=== PATIENT | male | born 1945 | race Caucasian/White ===

== ENCOUNTER 2016-11-21 10:48 | Inpatient (IN) ==
[2016-11-21] MEDS ORDERED: HYDROmorphone 2 MG/1 ML VIAL IV STA (11:06)
[2016-11-21] MEDS ORDERED: ONDANSETRON 4 MG/2 ML VIAL IV STA (11:06)
[2016-11-21] MEDS ORDERED: SODIUM CHLORIDE 0.9% 1,000 ML IV STA (11:06)
[2016-11-21] MEDS ORDERED: ONDANSETRON 4 MG/2 ML VIAL ONE ×2 (11:23→14:03)
[2016-11-21] MEDS ORDERED: HYDROmorphone 2 MG/1 ML VIAL ONE (11:24)
--- NOTE | 2016-11-21 11:25 | Emergency Department Note ---
Bean Steele Brooke, am scribing for, and in the presence of, Kristofer García MD 11:11 . Raquel Steele James D, MD, personally performed the services described in this documentation, ascribed by Alesia Del Angel in my presence, and it is both accurate and complete . Arrival - Arrival Chief Complaint: Abdominal / Flank Pain Stated Complaint: abd pain,nausea,weakness/sent by [facility] ED Nursing Triage Note: c/o having abdomen pain that started at 0400 am, + nausea., states [facility] and was told to come here because he felt weak and needed to lay down., denies having increase temp., states the pain is worse in the pelvic area., denies having pain when urinates., last BM today (normal) Mode of Arrival: Wheelchair Limitations: No Limitations Source: Patient, RN Notes Reviewed Time Seen by Provider: 11/21/16 11:00 - History of Present Illness HPI Narrative: Patient is a 71 year old male who presents to the ED with c/o RLQ abdominal pain that started around 0500 this morning. Patient says the pain woke him from his sleep and it felt like he had to go to the bathroom. With time, he says the pain has worsened. The pain is also worsened with movement. He describes the pain as "like a knot in there." He has never experienced this pain in the past. He says he ate okay last night. He says he does not have any hernias that he is aware of. He denies having any dysuria, chills, fever, constipation, blood in stool, or vomiting but says he did get nauseated earlier. His last bowel movement was at 0700 this morning and he says it was normal. Patient no longer has his gallbadder but does have his appendix. Patient has PMHx of HTN and GA. Patient is no longer a smoker and does not drink alcohol. His Primary Care Provider is Dr. Blandon. Onset (ago): hour(s) (6) Allergies/Adverse Reactions: Allergies Allergy/AdvReac Type Severity Reaction Status Date / Time No Known Allergies Allergy Verified 11/21/16 10:54 Home Medications: Home Medications Medication Instructions Recorded Confirmed Type Aspirin EC Tab 325 mg PO DAILY 11/21/16 11/21/16 History Carvedilol [Coreg] 25 mg PO BID 11/21/16 11/21/16 History Cholecalciferol (Vitamin D3) 2,000 unit PO DAILY 11/21/16 11/21/16 History [Vitamin D3] Cyanocobalamin/Folic AC/Vit B6 1 each PO DAILY 11/21/16 11/21/16 History [Folbic Tablet] Levothyroxine Tab [Synthroid Tab] 137 mcg PO DAILY 11/21/16 11/21/16 History Losartan [Cozaar] 50 mg PO DAILY 11/21/16 11/21/16 History Magnesium Chloride [Slow Mag] 128 mg PO DAILY 11/21/16 11/21/16 History Pantoprazole Tab [Protonix Tab] 40 mg PO DAILY 11/21/16 11/21/16 History Rosuvastatin [Crestor] 10 mg PO DAILY 11/21/16 11/21/16 History Sertraline [Zoloft] 50 mg PO DAILY 11/21/16 11/21/16 History hydroCHLOROthiazide 12.5 mg PO DAILY 11/21/16 11/21/16 History [Hydrochlorothiazide] Review of System - Review of System 12 point system: reviewed and no additional remarkable complaints except as stated - Review of System Constitutional: Absent: chills, fever Respiratory: Absent: respiratory distress Gastrointestinal: Present: abdominal pain (RLQ), nausea. Absent: vomiting, constipation, hematochezia Genitourinary male: Absent: dysuria Skin: Absent: rash Medical,Surgical,& Family Hx - Medical History Cardio: History of: Hypertension, GA, Cardiovascular Problems - Surgical History Cardiac Surgeries: Sugical HX of: Cardiac Surgery - Social History Smoking Status: Never smoker Frequency of Alcohol Use: None Type of Drug Use: None Exam Vital Signs: Vital Signs Temperature 98.0 F 11/21/16 10:49 Pulse Rate 74 11/21/16 10:49 Respiratory Rate 18 11/21/16 10:49 Blood Pressure 86/44 11/21/16 10:49 O2 Sat by Pulse Oximetry 96 11/21/16 10:49 GENERAL: This is a well-nourished well-developed white male in no apparent distress. VITAL SIGNS: Reviewed HEENT: Head is atraumatic and normocephalic. Pupils are equal round react to light. Extraocular movements are intact. Oropharynx is benign with moist mucous membranes. NECK: Neck is soft and supple without tenderness. There are no masses. There is no lymphadenopathy. LUNGS: Lungs are clear to auscultation. Chest rises symmetrically. There is no chest wall tenderness. CV: Heart is regular rate and rhythm without murmurs rubs or gallops. ABDOMEN: Abdomen is tender to palpation the left lower quadrant with some guarding, there is no rebound. The patient does have some left CVA tenderness. There are no abdominal abnormal masses palpated. There is no organomegaly. Bowel sounds are present and active. SKIN: Skin is warm and dry. No rash. EXTREMITIES: Patient has full range of motion without tenderness. There is no pedal edema. NEUROLOGIC: Awake alert and oriented 4. Cranial nerves II through XII are grossly intact. Motor is 5 over 5 in all extremities bilaterally. Course - Consultations Consultation #1: Discussed with Dr. Antonio WILLSON. Patient will be seen in the emergency department by him. Time: 11:40 Results - Labs CBC & BMP: 11/21/16 11:41 11/21/16 11:02 Lab Results: I have reviewed the patients labs - Diagnostic Findings Procedure: Abdominal x-ray: image reviewed by me (Nonspecific gas pattern with pneumoperitoneum.), Chest x-ray: image reviewed by me (No infiltrates, old median sternotomy, bilateral pneumoperitoneum.), CT Abdomen and Pelvis: image reviewed by me (Generalized colonic diverticulosis with diverticulitis of the rectosigmoid colon and pneumoperitoneum.) Disposition Clinical Impression: Intractable left lower quadrant abdominal pain, Pneumoperitoneum Case discussed with: patient, patient's family Disposition: Still a Patient Condition: Stable
[2016-11-21] MEDS ORDERED: AMPICILLIN/SULBACTAM 3,000 MG in SODIUM CHLORIDE 0.9% 100 ML IV STA (11:40)
[2016-11-21] MEDS ORDERED: FAMOTIDINE 20 MG/2 ML VIAL IV STA (11:42)
--- NOTE | 2016-11-21 11:43 | CT Report ---
CT abdomen pelvis w con Indication: Abdominal and pelvic pain. CT ABDOMEN AND PELVIS WITH CONTRAST DLP: 1554 mGy*cm. One or more of the following dose reduction techniques was used: Automated exposure control, adjustment of the mA and/or kV according the patient size, or use of iterative reconstruction techniques. Comparison: 06/24/2011 Technique: Axial CT images of the abdomen and pelvis were obtained with IV contrast; Omnipaque 350, 100 cc. Oral contrast was not administered. Abdomen: Postoperative changes median sternotomy again noted. Normal heart size. Scarring of the lung bases noted. There are otherwise clear. Scattered hypodensities in the liver are stable, likely cysts. None are greater than 1 cm. Spleen, pancreas, adrenal glands and kidneys are unremarkable. There is free air in the abdomen. No bowel obstruction. No free fluid. Vascular calcinosis of the aorta is moderately severe. Pelvis: Diffuse bowel wall thickening and extensive diverticulosis of the rectosigmoid colon is present. Free air tracks into the colonic mesentery. The appendix is normal in size without associated inflammation. Urinary bladder is unremarkable. Prostate is within normal limits. No free fluid. No lymphadenopathy. No new bone lesions. Impression: Diverticulitis of the rectosigmoid colon with perforation and free air in the abdomen. PROCEDURE INTERPRETED AT [facility] DEPARTMENT OF RADIOLOGY Final Report Signed by: Marcelo Brunson M.D.
[2016-11-21] MEDS ORDERED: AMPICILLIN/SULBACTAM 3,000 MG VIAL ONE (11:44)
[2016-11-21] MEDS ORDERED: FAMOTIDINE 20 MG/2 ML VIAL IV ONE (11:44)
--- NOTE | 2016-11-21 11:44 | XRay Report ---
XR abdomen 2V Indication: Perforated diverticulitis. Abdomen 3 views: Trace amount of free air shown under the diaphragm. Stool and gas is shown the colon. Short segment reactive small bowel left mid abdomen noted. Urinary contrast is noted. Vascular calcinosis present. Impression: Pneumoperitoneum. PROCEDURE INTERPRETED AT [facility] DEPARTMENT OF RADIOLOGY Final Report Signed by: Marcelo Brunson M.D.
--- NOTE | 2016-11-21 11:45 | XRay Report ---
XR chest 1V portable Indication: Abdominal pain. Chest one view: Comparison 04/28/2014. Postoperative changes median sternotomy, normal heart size and generally clear lungs are stable. Small amount of pneumoperitoneum is present. Pleural spaces are clear. No bone lesions. Impression: Small amount of pneumoperitoneum. PROCEDURE INTERPRETED AT [facility] DEPARTMENT OF RADIOLOGY Final Report Signed by: Marcelo Brunson M.D.
[2016-11-21 11:48] LABS: Basophils # 0.1 10*3/uL (0.0-0.2); Basophils % 0.5 % (0.0-0.8); Eosinophils # 0.7 10*3/uL (0.0-0.87); Eosinophils % 4.1 % (0.00-10.9); Hematocrit 44.8 VOL% (42.0-52.0); Hemoglobin 15.5 GM/DL (14.0-18.0); Immature Granulocytes % 0.7 %; Immature Granulocytes Absolute 0.11 #; Lymphocytes # 1.4 10*3/uL (1.4-4.0); Lymphocytes % 8.7 % (21.2-54.2); Mean Corpuscular HGB Conc 34.6 GM/DL (32-36); Mean Corpuscular Hemoglobin 32 PG (27-34); Mean Corpuscular Volume 92.2 FL (87-102); Mean Platelet Volume 10.4 FL (9.6-12.0); Monocytes # 1.1 10*3/uL (0.11-0.8); Neutrophils # 12.6 10*3/uL (1.4-7.4); Platelet Count 160 T/CUMM (130-400); Red Blood Count 4.86 MC/CUMM (3.8-5.5); Red Cell Distribution Width 13.2 % (9.3-17.3); White Blood Count 15.9 T/CUMM (4-12)
[2016-11-21 11:51] LABS: Albumin 4.1 G/DL (3.4-5.0); Bilirubin,Total 0.7 MG/DL (0.2-1.0); Calcium 9.5 MG/DL (8.5-10.1); Potassium 4.6 MMOL/L (3.5-5.1); Total Protein 7.1 G/DL (6.4-8.3)
--- NOTE | 2016-11-21 12:07 | General Surg History&Physical ---
Assessment and Plan - Time spent with patient Time spent with patient: Greater than 30 minutes (1) Diverticulitis large intestine Status: Acute Assessment and plan: He appears to have perforation and pneumoperitoneum with developing peritonitis. He initially had a low blood pressure when he arrived but his blood pressure is normal and elevated at this point. He is awake and alert and does not appear to have sepsis at this point. We discussed the options of treatment with IV antibiotics and IV fluids versus surgery and I have recommended surgery due to his diffuse peritonitis and his medical risk which I think would probably not tolerate sepsis. We discussed the risks related to surgery is and especially in light of his underlying heart disease. They understand that there is a risk of heart attack or stroke or . And understand that he will likely require a colostomy. This could be reversed later most likely. They understand also the risks to adjacent organs such as bowel bladder or ureters and major bleeding and major infections. I understand these issues and wished to proceed. We have already started IV fluids and IV antibiotics. Current Visit: Yes Qualifiers: Diverticulitis complication: with perforation History of Present Illness Chief complaint: Abdominal pain History of present illness: Mr. Blanco is a 71 year old male He was awakened this morning with severe abdominal pain. This pain was severe and in the left lower quadrant and has been constant. It hurts more if he moves. He has not had nausea or vomiting. He had not had pain like this before. He came to the emergency department with these complaints and an abdominal CT scan showed pneumoperitoneum and diverticulitis. He has had chills but no fever. Home Medications Medication Instructions Recorded Confirmed Type Aspirin EC Tab 325 mg PO DAILY 11/21/16 11/21/16 History Carvedilol [Coreg] 25 mg PO BID 11/21/16 11/21/16 History Cholecalciferol (Vitamin D3) 2,000 unit PO DAILY 11/21/16 11/21/16 History [Vitamin D3] Cyanocobalamin/Folic AC/Vit B6 1 each PO DAILY 11/21/16 11/21/16 History [Folbic Tablet] Levothyroxine Tab [Synthroid Tab] 137 mcg PO DAILY 11/21/16 11/21/16 History Losartan [Cozaar] 50 mg PO DAILY 11/21/16 11/21/16 History Magnesium Chloride [Slow Mag] 128 mg PO DAILY 11/21/16 11/21/16 History Pantoprazole Tab [Protonix Tab] 40 mg PO DAILY 11/21/16 11/21/16 History Rosuvastatin [Crestor] 10 mg PO DAILY 11/21/16 11/21/16 History Sertraline [Zoloft] 50 mg PO DAILY 11/21/16 11/21/16 History hydroCHLOROthiazide 12.5 mg PO DAILY 11/21/16 11/21/16 History [Hydrochlorothiazide] Allergies Allergy/AdvReac Type Severity Reaction Status Date / Time No Known Allergies Allergy Verified 11/21/16 10:54 Medical,Surgical,& Family Hx - Medical History Cardio: History of: Hypertension, [place], Cardiovascular Problems - Surgical History Cardiac Surgeries: Sugical HX of: Cardiac Surgery - Family History Family History: noncontributory - Social History Smoking Status: Never smoker Frequency of Alcohol Use: None Type of Drug Use: None Exam - Constitutional Vitals: Period Temp Pulse Resp BP Sys/Esteban Pulse Ox Last 24 Hr 98.0 F 74 18 86/44 96 General appearance: no acute distress - Head Head exam: Present: normocephalic - Eye Eye exam: Absent: scleral icterus - ENT Mouth exam: Present: normal voice - Neck Neck exam: Present: trachea midline. Absent: lymphadenopathy, tenderness, thyromegaly - Respiratory Respiratory exam: Present: clear to auscultation bilaterally. Absent: accessory muscle use - Cardiovascular Cardiovascular exam: Present: RRR - GI/Abdominal GI/Abdominal exam: Present: tenderness (Left lower quadrant), rebound, soft. Absent: distended, guarding, mass - Extremities Exam Extremities exam: Absent: edema - Neurological Exam Neurological exam: Present: alert, oriented X3. Absent: motor sensory deficit Speech: Present: normal - Skin Skin exam: Present: normal color - Constitutional Constitutional: Present: anorexia, chills, weight loss. Absent: fever(s) - Cardiovascular Cardiovascular: Absent: chest pain at rest, chest pain with activity, dyspnea, dyspnea on exertion, syncope - Respiratory Respiratory: Absent: dyspnea, hemoptysis, dyspnea on exertion - Gastrointestinal Gastrointestinal: Present: abdominal pain, bloating, nausea. Absent: hematemesis, hematochezia, melena, vomiting, jaundice - Genitourinary Genitourinary: Absent: hematuria - Musculoskeletal Musculoskeletal: Absent: back pain - Neurological Neurological: Absent: focal weakness, syncope - Endocrine Endocrine: Absent: polyuria Hematologic/Lymphatic: Absent: easy bleeding, easy bruising Results - Labs CBC & BMP: 11/21/16 11:41 11/21/16 11:02 Lab Results: I have reviewed the past 24 hour labs - Diagnostic Findings Procedure: CT Abdomen and Pelvis: image reviewed by me, report reviewed by me
--- NOTE | 2016-11-21 12:24 | EKG Report ---
Stationary ECG Study 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
[2016-11-21] MEDS ORDERED: CITRIC ACID/SODIUM CITRATE 30 ML UDCUP PO ONE (13:18)
[2016-11-21] MEDS ORDERED: METOCLOPRAMIDE 10 MG/2 ML VIAL IV ONE (13:18)
[2016-11-21] MEDS ORDERED: METOCLOPRAMIDE 10 MG/2 ML VIAL ONE (13:23)
[2016-11-21 13:52] LABS: Apearance,Urine CLEAR (Clear); Bilirubin,Urine Negative (Negative); Blood, Urine Negative (Negative); Glucose,Urine (UA) Negative (Negative); Ketones,Urine Negative (Negative); Nitrite,Urine Negative (Negative); Protein,Urine Negative; RBC,Urine 3 /HPF (0-4); Urine Color Yellow (Yellow); Urine Specific Gravity 1.045 (1.001-1.035); Urine Urobilinogen < 2.0 EU/DL (0.2-1.0)
[2016-11-21] MEDS ORDERED: CITRIC ACID/SODIUM CITRATE 30 ML UDCUP ONE (13:52)
[2016-11-21] MEDS ORDERED: LIDOCAINE 2% 5 ML VIAL ONE (14:03)
[2016-11-21] MEDS ORDERED: NEOSTIGMINE 10 MG/10 ML VIAL ONE (14:03)
[2016-11-21] MEDS ORDERED: ROCURONIUM 100 MG/10 ML VIAL IV ONE (14:03)
[2016-11-21] MEDS ORDERED: HYDROCORTISONE 100 MG VIAL ONE (14:03)
[2016-11-21] MEDS ORDERED: ETOMIDATE 20 MG/10 ML VIAL IV ONE (14:03)
[2016-11-21] MEDS ORDERED: GLYCOPYRROLATE 0.4 MG/2 ML VIAL ONE (14:03)
[2016-11-21] MEDS ORDERED: SUCCINYLCHOLINE 200 MG/10 ML VIAL ONE (14:03)
[2016-11-21] MEDS ORDERED: ONDANSETRON 4 MG/2 ML VIAL IV PRN (15:22)
--- NOTE | 2016-11-21 15:22 | Operative Note ---
Date of procedure: 11/21/16 Pre-op diagnosis: Sigmoid diverticulitis with perforation and peritonitis Post-op diagnosis: same Procedure: #1 sigmoid colectomy 2. End colostomy (Lore procedure) Findings and technique: After informed consent was obtained the patient was brought to the operating room placed in supine position. After successful induction of general anesthesia the patient's abdomen was prepped and draped in usual sterile fashion. A lower midline incision was made in the peritoneal cavity entered where some free air and purulent exudate was noted on the small bowel surface. There was no gross spillage of enteric contents. There was pus in the pelvis which was cultured and evacuated with suction. The sigmoid colon was the site of perforation where the distal one third of the colon had a visible perforated diverticulum. There was no enteric contents. The colon was mobilized by incising the peritoneal reflection and the colon was transected proximally with a JERONIMO stapling device and the mesocolon with divided between clamps and ties down to just above the peritoneal reflection where it was transected with a TA stapling device. Care was taken not to spill any enteric contents. The rectal stump was marked with a Prolene suture for later identification. Good hemostasis was noted in the abdomen was irrigated and a colostomy site selected in the left lower quadrant where a circular skin incision was made in a vertical incision made in the rectus sheath at its lateral aspect and the end of the colon brought up through the defect without tension. The midline fascia was closed with a running #1 PDS suture taking generous bites of the midline fascia and subcutaneous layer was irrigated and packed open with moist saline gauze. I elected not to close the skin because this was a contaminated procedure with gross purulence in the peritoneal meal cavity. The colostomy was then matured to the skin with Vicryl suture and a colostomy bag applied. He appeared to tolerate the procedure well and had minimal blood loss. Anesthesia: GETA Surgeon / Physician: Oral Alvarez III. Estimated blood loss: other (50 mL) Specimens: other (Sigmoid colon and cultures of peritoneal) Condition: stable Disposition: PACU Results - Labs CBC & BMP: 11/21/16 11:41 11/21/16 11:02 Discharge Plan - Discharge Medications No Action Magnesium Chloride [Slow Mag] 128 mg PO DAILY Aspirin EC Tab 325 mg PO DAILY Sertraline [Zoloft] 50 mg PO DAILY Rosuvastatin [Crestor] 10 mg PO DAILY Pantoprazole Tab [Protonix Tab] 40 mg PO DAILY Cyanocobalamin/Folic AC/Vit B6 [Folbic Tablet] 1 each PO DAILY Carvedilol [Coreg] 25 mg PO BID Cholecalciferol (Vitamin D3) [Vitamin D3] 2,000 unit PO DAILY hydroCHLOROthiazide [Hydrochlorothiazide] 12.5 mg PO DAILY Levothyroxine Tab [Synthroid Tab] 137 mcg PO DAILY Losartan [Cozaar] 50 mg PO DAILY - Follow Up or Referral - Forms/Instructions
[2016-11-21 15:41] LABS: Apearance,Urine CLEAR (Clear); Bacteria,Urine Occasional /HPF (Few); Bilirubin,Urine Negative (Negative); Blood, Urine Negative (Negative); Glucose,Urine (UA) Negative (Negative); Ketones,Urine Negative (Negative); Mucus,Urine Occasional /LPF (Occasional); Nitrite,Urine Negative (Negative); Protein,Urine Negative; RBC,Urine 1 /HPF (0-4); Squamous Epithelial Cell,Urine Occasional /HPF (0-10); Urine Color Yellow (Yellow); Urine Specific Gravity 1.019 (1.001-1.035); Urine Urobilinogen < 2.0 EU/DL (0.2-1.0); WBC,Urine 1 /HPF (0-6)
[2016-11-21] MEDS: DEXTROSE 5% LACTATED RINGERS 1,000 ML IV SCH ×2 (15:55→22:09)
[2016-11-21] MEDS ORDERED: LACTATED RINGERS 1,000 ML IV ONE (16:30)
[2016-11-21] MEDS ORDERED: fentaNYL 100 MCG/2 ML VIAL ONE (16:30)
[2016-11-21] MEDS ORDERED: SEVOFLURANE 1 UNIT/15 MINUTE INH ONE (16:30)
[2016-11-21] MEDS ORDERED: ACETAMINOPHEN 1,000 MG/100 ML VIAL IV ONE (16:30)
[2016-11-21] MEDS ORDERED: ALBUMIN 5% 12.5 GM/250 ML VIAL IV ONE (16:30)
[2016-11-21 16:39] LABS: Hematocrit 39.4 VOL% (42.0-52.0); Hemoglobin 13.5 GM/DL (14.0-18.0)
[2016-11-21] MEDS: MORPHINE PCA 30 MG/30 ML SYRINGE IV SCH (16:47)
--- NOTE | 2016-11-21 17:01 | Anesthesia Post-Op ---
Anesthesia Post OP - Post Ansesthetic Evaluation Patient seen in post op: Yes Resp: within normal limits CV: within normal limits Mental: within normal limits Temp: within normal limits [id number]-Ir-[id number]: within normal limits Nausea and Vomiting: within normal limits Pain: within normal limits
[2016-11-21] MEDS ORDERED: PNEUMOCOCCAL VACCINE (13 VALENT) 0.5 ML SYRINGE IM ONE (17:28)
[2016-11-21] MEDS: CARVEDILOL 25 MG TABLET PO SCH (21:00)
[2016-11-21 23:58] LABS: Hematocrit 36.2 VOL% (42.0-52.0); Hemoglobin 12.4 GM/DL (14.0-18.0)
[2016-11-22] MEDS: DEXTROSE 5% LACTATED RINGERS 1,000 ML IV SCH ×4 (04:53→17:05)
[2016-11-22 06:01] LABS: Basophils % 0.3 % (0.0-0.8); Eosinophils # 0.3 10*3/uL (0.0-0.87); Eosinophils % 2.5 % (0.00-10.9); Hematocrit 37.5 VOL% (42.0-52.0); Hemoglobin 12.6 GM/DL (14.0-18.0); Immature Granulocytes % 0.8 %; Immature Granulocytes Absolute 0.11 #; Lymphocytes # 1.3 10*3/uL (1.4-4.0); Lymphocytes % 9.9 % (21.2-54.2); Mean Corpuscular HGB Conc 33.6 GM/DL (32-36); Mean Corpuscular Hemoglobin 31 PG (27-34); Mean Corpuscular Volume 93.3 FL (87-102); Mean Platelet Volume 10.4 FL (9.6-12.0); Monocytes # 1.1 10*3/uL (0.11-0.8); Monocytes % 7.8 % (1.7-12.7); Neutrophils # 10.5 10*3/uL (1.4-7.4); Neutrophils % 78.7 % (38.7-73.9); Platelet Count 114 T/CUMM (130-400); Red Blood Count 4.02 MC/CUMM (3.8-5.5); Red Cell Distribution Width 13.3 % (9.3-17.3); White Blood Count 13.4 T/CUMM (4-12)
[2016-11-22 06:31] LABS: Albumin 3.4 G/DL (3.4-5.0); Bilirubin,Total 1.5 MG/DL (0.2-1.0); Calcium 8.2 MG/DL (8.5-10.1); Osmolality,Calculated 274.7 MOS/KG (273-304); Potassium 3.9 MMOL/L (3.5-5.1); Total Protein 5.8 G/DL (6.4-8.3)
[2016-11-22] MEDS: MORPHINE PCA 30 MG/30 ML SYRINGE IV SCH ×3 (07:46→22:34)
[2016-11-22] MEDS: hydroCHLOROthiazide 12.5 MG CAPSULE PO SCH (09:20)
[2016-11-22] MEDS: LOSARTAN 50 MG TABLET PO SCH (09:21)
[2016-11-22] MEDS: ASPIRIN EC 325 MG TABLET PO SCH (09:21)
[2016-11-22] MEDS: MAGNESIUM CHLORIDE 64 MG TABLET PO SCH (09:21)
[2016-11-22] MEDS: LEVOTHYROXINE 137 MCG TABLET PO SCH (09:21)
[2016-11-22] MEDS: PANTOPRAZOLE 40 MG VIAL IV SCH (09:21)
[2016-11-22] MEDS: SERTRALINE 50 MG TABLET PO SCH (09:21)
[2016-11-22] MEDS: CARVEDILOL 25 MG TABLET PO SCH ×2 (09:21→22:26)
[2016-11-22] MEDS: ENOXAPARIN 40 MG/0.4 ML SYRINGE SUBCUT SCH (09:22)
--- NOTE | 2016-11-22 10:12 | Event Note ---
He feels well and looks good. He has incisional pain as expected but feels better overall. His vital signs are stable. He has good urine output. His abdomen appears benign. His hematocrit is stable. We will get him up out of bed today and transfer him to the floor. We will get his Chavarria catheter out. We will cut back his IV fluids.
[2016-11-22 12:05] LABS: Hematocrit 37.4 VOL% (42.0-52.0); Hemoglobin 12.4 GM/DL (14.0-18.0)
[2016-11-22] MEDS: AMPICILLIN/SULBACTAM 3,000 MG in SODIUM CHLORIDE 0.9% 100 ML IV SCH ×3 (13:32→22:26)
[2016-11-23] MEDS: DEXTROSE 5% LACTATED RINGERS 1,000 ML IV SCH ×3 (02:51→16:55)
[2016-11-23] MEDS: AMPICILLIN/SULBACTAM 3,000 MG in SODIUM CHLORIDE 0.9% 100 ML IV SCH ×4 (04:57→21:59)
[2016-11-23] MEDS: ENOXAPARIN 40 MG/0.4 ML SYRINGE SUBCUT SCH (08:29)
[2016-11-23] MEDS: MAGNESIUM CHLORIDE 64 MG TABLET PO SCH (08:29)
[2016-11-23] MEDS: PANTOPRAZOLE 40 MG VIAL IV SCH (08:29)
[2016-11-23] MEDS: SERTRALINE 50 MG TABLET PO SCH (08:29)
[2016-11-23] MEDS: hydroCHLOROthiazide 12.5 MG CAPSULE PO SCH (08:29)
[2016-11-23] MEDS: CARVEDILOL 25 MG TABLET PO SCH ×2 (08:29→21:02)
[2016-11-23] MEDS: LEVOTHYROXINE 137 MCG TABLET PO SCH (08:29)
[2016-11-23] MEDS: ASPIRIN EC 325 MG TABLET PO SCH (08:30)
[2016-11-23] MEDS: LOSARTAN 50 MG TABLET PO SCH (08:30)
--- NOTE | 2016-11-23 09:33 | Event Note ---
He looks and feels much better. He has had no nausea or vomiting. His abdomen is benign. He is afebrile with stable vital signs and he has good urine output. I will recheck lab. We will try to get him up out of bed more today. They did not take his Chavarria out yesterday as ordered. We will look at doing secondary closure of his wound tomorrow.
[2016-11-23 10:52] LABS: Basophils % 0.1 % (0.0-0.8); Eosinophils # 0.7 10*3/uL (0.0-0.87); Eosinophils % 6.3 % (0.00-10.9); Hematocrit 33.9 VOL% (42.0-52.0); Hemoglobin 11.7 GM/DL (14.0-18.0); Immature Granulocytes % 0.8 %; Immature Granulocytes Absolute 0.09 #; Lymphocytes # 1.3 10*3/uL (1.4-4.0); Lymphocytes % 11.8 % (21.2-54.2); Mean Corpuscular HGB Conc 34.5 GM/DL (32-36); Mean Corpuscular Hemoglobin 32 PG (27-34); Mean Corpuscular Volume 92.1 FL (87-102); Mean Platelet Volume 10.4 FL (9.6-12.0); Monocytes # 0.8 10*3/uL (0.11-0.8); Monocytes % 7.5 % (1.7-12.7); Neutrophils # 8.1 10*3/uL (1.4-7.4); Neutrophils % 73.5 % (38.7-73.9); Platelet Count 102 T/CUMM (130-400); Red Blood Count 3.68 MC/CUMM (3.8-5.5); Red Cell Distribution Width 13.2 % (9.3-17.3); White Blood Count 11.1 T/CUMM (4-12)
[2016-11-23] MEDS: CYCLOBENZAPRINE 10 MG TABLET PO PRN ×3 (10:55→21:57)
[2016-11-23 11:29] LABS: Albumin 2.9 G/DL (3.4-5.0); Bilirubin,Total 1.2 MG/DL (0.2-1.0); Calcium 8.3 MG/DL (8.5-10.1); Osmolality,Calculated 267.2 MOS/KG (273-304); Potassium 3.7 MMOL/L (3.5-5.1); Total Protein 5.3 G/DL (6.4-8.3)
[2016-11-23] MEDS: MORPHINE PCA 30 MG/30 ML SYRINGE IV SCH (16:55)
[2016-11-24] MEDS: DEXTROSE 5% LACTATED RINGERS 1,000 ML IV SCH ×5 (01:27→17:23)
[2016-11-24] MEDS: AMPICILLIN/SULBACTAM 3,000 MG in SODIUM CHLORIDE 0.9% 100 ML IV SCH ×4 (04:18→21:32)
[2016-11-24] MEDS: MORPHINE PCA 30 MG/30 ML SYRINGE IV SCH ×2 (05:43→14:32)
[2016-11-24 06:28] LABS: Basophils % 0.3 % (0.0-0.8); Eosinophils # 0.8 10*3/uL (0.0-0.87); Eosinophils % 7.6 % (0.00-10.9); Hemoglobin 11.8 GM/DL (14.0-18.0); Lymphocytes % 9.9 % (21.2-54.2); Mean Corpuscular HGB Conc 34.7 GM/DL (32-36); Mean Corpuscular Hemoglobin 32 PG (27-34); Mean Corpuscular Volume 90.7 FL (87-102); Monocytes # 0.8 10*3/uL (0.11-0.8); Monocytes % 8.1 % (1.7-12.7); Neutrophils # 7.5 10*3/uL (1.4-7.4); Neutrophils % 73.1 % (38.7-73.9); Platelet Count 110 T/CUMM (130-400); Red Blood Count 3.75 MC/CUMM (3.8-5.5); Red Cell Distribution Width 13.1 % (9.3-17.3); White Blood Count 10.3 T/CUMM (4-12)
[2016-11-24 06:52] LABS: Calcium 8.6 MG/DL (8.5-10.1); Potassium 3.6 MMOL/L (3.5-5.1)
[2016-11-24] MEDS: hydroCHLOROthiazide 12.5 MG CAPSULE PO SCH (08:04)
[2016-11-24] MEDS: MAGNESIUM CHLORIDE 64 MG TABLET PO SCH (08:04)
[2016-11-24] MEDS: ASPIRIN EC 325 MG TABLET PO SCH (08:04)
[2016-11-24] MEDS: LEVOTHYROXINE 137 MCG TABLET PO SCH (08:04)
[2016-11-24] MEDS: SERTRALINE 50 MG TABLET PO SCH (08:04)
[2016-11-24] MEDS: LOSARTAN 50 MG TABLET PO SCH (08:25)
[2016-11-24] MEDS: CARVEDILOL 25 MG TABLET PO SCH ×2 (08:25→20:00)
[2016-11-24] MEDS: PANTOPRAZOLE 40 MG VIAL IV SCH (08:25)
[2016-11-24] MEDS: ENOXAPARIN 40 MG/0.4 ML SYRINGE SUBCUT SCH (08:25)
--- NOTE | 2016-11-24 10:05 | Event Note ---
He looks and feels well. His abdomen is benign. We will do a secondary closure on his wound under sedation and local anesthesia today.
--- NOTE | 2016-11-24 11:19 | Pathology Report from [facility] ---
[facility] [place] [id number] PATIENT NAME : Greg Cavazos ORDERING DR : BRENDA LARA III, MD CLINICAL HX: Perforated colon POST-OP DX: Same SPECIMEN INFO: Sigmoid colon (distal end open end) GROSS DESCRIPTION: The specimen is received in formalin labeled GREG CAVAZOS and consists of a colon segment measuring 13.5 x 2.5 cm. One end of the specimen is opened and the opposite end is closed. Open colon reveals multiple disfuse mildly bleeding diverticula. No masses or perforation grossly appreciated. 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 DIAGNOSIS FOR GREG CAVAZOS: SIGMOID COLECTOMY: Diverticulosis/ diverticulitis. Viable tissue present in proximal and distal specimen margins. COLLECTED DATE: 11/22/2016 [facility] [place]: 11/24/2016 ELECTRONICALLY SIGNED BY: Femi Foster M.D. 11/24/2016 - 9:28:42 MTDD
[2016-11-24] MEDS ORDERED: BUPIVACAINE MPF 0.25% /EPI 30 ML VIAL ONE (12:02)
[2016-11-24] MEDS ORDERED: LIDOCAINE 1%/EPI INJ 20 ML VIAL ONE (12:02)
--- NOTE | 2016-11-24 12:31 | Operative Note ---
Date of procedure: 11/24/16 Pre-op diagnosis: Open laparotomy wound status post peritonitis Post-op diagnosis: same Procedure: Secondary closure midline abdominal wound Findings and technique: After informed consent was obtained the patient was brought the operating room and placed in supine position. After IV sedation was administered the patient's abdomen was prepped and draped in usual sterile fashion. Local anesthesia was infiltrated in his midline abdominal wound and the wound was irrigated. There were no signs of infection. The fascia was intact. Wound was then closed by approximating the skin edges with forceps and applying skin gun. A sterile dressing was applied. Anesthesia: MAC, local Surgeon / Physician: Oral Alvarez III. Estimated blood loss: none Specimens: none sent Condition: stable Disposition: PACU Results - Labs CBC & BMP: 11/24/16 06:05 11/24/16 06:05 Discharge Plan - Discharge Medications No Action Magnesium Chloride [Slow Mag] 128 mg PO DAILY Aspirin EC Tab 325 mg PO DAILY Sertraline [Zoloft] 50 mg PO DAILY Rosuvastatin [Crestor] 10 mg PO DAILY Pantoprazole Tab [Protonix Tab] 40 mg PO DAILY Cyanocobalamin/Folic AC/Vit B6 [Folbic Tablet] 1 each PO DAILY Carvedilol [Coreg] 25 mg PO BID Cholecalciferol (Vitamin D3) [Vitamin D3] 2,000 unit PO DAILY hydroCHLOROthiazide [Hydrochlorothiazide] 12.5 mg PO DAILY Levothyroxine Tab [Synthroid Tab] 137 mcg PO DAILY Losartan [Cozaar] 50 mg PO DAILY - Follow Up or Referral - Forms/Instructions
[2016-11-24] MEDS ORDERED: MIDAZOLAM 2 MG/2 ML VIAL ONE (13:04)
[2016-11-24] MEDS ORDERED: fentaNYL 100 MCG/2 ML VIAL ONE (13:05)
[2016-11-24] MEDS: CYCLOBENZAPRINE 10 MG TABLET PO PRN (17:22)
[2016-11-25] MEDS: AMPICILLIN/SULBACTAM 3,000 MG in SODIUM CHLORIDE 0.9% 100 ML IV SCH ×4 (03:31→21:45)
[2016-11-25] MEDS: DEXTROSE 5% LACTATED RINGERS 1,000 ML IV SCH ×2 (04:10→17:31)
[2016-11-25] MEDS: CYCLOBENZAPRINE 10 MG TABLET PO PRN (06:43)
[2016-11-25] MEDS: MORPHINE PCA 30 MG/30 ML SYRINGE IV SCH ×2 (08:21→17:32)
[2016-11-25] MEDS: SERTRALINE 50 MG TABLET PO SCH (11:21)
[2016-11-25] MEDS: MAGNESIUM CHLORIDE 64 MG TABLET PO SCH (11:23)
[2016-11-25] MEDS: hydroCHLOROthiazide 12.5 MG CAPSULE PO SCH (11:23)
[2016-11-25] MEDS: PANTOPRAZOLE 40 MG VIAL IV SCH (11:24)
[2016-11-25] MEDS: CARVEDILOL 25 MG TABLET PO SCH ×2 (11:24→21:45)
[2016-11-25] MEDS: LEVOTHYROXINE 137 MCG TABLET PO SCH (11:24)
[2016-11-25] MEDS: ASPIRIN EC 325 MG TABLET PO SCH (11:24)
[2016-11-25] MEDS: ENOXAPARIN 40 MG/0.4 ML SYRINGE SUBCUT SCH (11:27)
[2016-11-25] MEDS: LOSARTAN 50 MG TABLET PO SCH (11:28)
--- NOTE | 2016-11-25 15:40 | Event Note ---
He looks and feels well. His abdomen is benign and he is afebrile with stable vital signs. I see no signs of infection or any wound complication at this point we are advancing his diet and getting him more active.
[2016-11-26] MEDS: MORPHINE PCA 30 MG/30 ML SYRINGE IV SCH (02:41)
[2016-11-26] MEDS: AMPICILLIN/SULBACTAM 3,000 MG in SODIUM CHLORIDE 0.9% 100 ML IV SCH ×3 (04:41→15:32)
[2016-11-26] MEDS ORDERED: MORPHINE 2 MG/1 ML SYRINGE IV PRN (08:01)
[2016-11-26] MEDS: hydroCHLOROthiazide 12.5 MG CAPSULE PO SCH (08:43)
[2016-11-26] MEDS: LEVOTHYROXINE 137 MCG TABLET PO SCH (08:43)
[2016-11-26] MEDS: ASPIRIN EC 325 MG TABLET PO SCH (08:43)
[2016-11-26] MEDS: MAGNESIUM CHLORIDE 64 MG TABLET PO SCH (08:43)
[2016-11-26] MEDS: CYCLOBENZAPRINE 10 MG TABLET PO PRN (08:43)
[2016-11-26] MEDS: ENOXAPARIN 40 MG/0.4 ML SYRINGE SUBCUT SCH (08:43)
[2016-11-26] MEDS: CARVEDILOL 25 MG TABLET PO SCH ×2 (08:43→20:12)
[2016-11-26] MEDS: PANTOPRAZOLE 40 MG VIAL IV SCH (08:43)
[2016-11-26] MEDS: SERTRALINE 50 MG TABLET PO SCH (08:44)
[2016-11-26] MEDS: LOSARTAN 50 MG TABLET PO SCH (08:44)
--- NOTE | 2016-11-26 10:14 | Event Note ---
He feels well and tolerated liquids but is not having output from his colostomy the for any significant amount. His abdomen is benign. He is afebrile with stable vital signs. Think we are close to being ready for discharge. We will do ostomy teaching today and possibly discharge later today or in the morning.
[2016-11-26] MEDS: CIPROFLOXACIN 500 MG TABLET PO SCH (20:12)
[2016-11-27 06:53] LABS: Basophils # 0.1 10*3/uL (0.0-0.2); Basophils % 0.9 % (0.0-0.8); Hematocrit 36.4 VOL% (42.0-52.0); Hemoglobin 12.6 GM/DL (14.0-18.0); Immature Granulocytes % 3.7 %; Immature Granulocytes Absolute 0.38 #; Lymphocytes # 1.3 10*3/uL (1.4-4.0); Lymphocytes % 12.6 % (21.2-54.2); Mean Corpuscular HGB Conc 34.6 GM/DL (32-36); Mean Corpuscular Hemoglobin 32 PG (27-34); Mean Corpuscular Volume 91.7 FL (87-102); Mean Platelet Volume 10.9 FL (9.6-12.0); Monocytes % 9.4 % (1.7-12.7); Neutrophils # 6.6 10*3/uL (1.4-7.4); Neutrophils % 63.4 % (38.7-73.9); Platelet Count 147 T/CUMM (130-400); Red Blood Count 3.97 MC/CUMM (3.8-5.5); Red Cell Distribution Width 13.4 % (9.3-17.3); White Blood Count 10.4 T/CUMM (4-12)
[2016-11-27 07:22] LABS: Calcium 8.9 MG/DL (8.5-10.1); Osmolality,Calculated 272.7 MOS/KG (273-304); Potassium 3.7 MMOL/L (3.5-5.1)
[2016-11-27] MEDS ORDERED: MAGNESIUM HYDROXIDE SUSP 30 ML UDCUP PO ONE (08:05)
[2016-11-27] MEDS: CARVEDILOL 25 MG TABLET PO SCH ×2 (08:26→20:20)
[2016-11-27] MEDS: PANTOPRAZOLE 40 MG TABLET PO SCH (08:26)
[2016-11-27] MEDS: LEVOTHYROXINE 137 MCG TABLET PO SCH (08:26)
[2016-11-27] MEDS: CIPROFLOXACIN 500 MG TABLET PO SCH ×2 (08:26→20:20)
[2016-11-27] MEDS: hydroCHLOROthiazide 12.5 MG CAPSULE PO SCH (08:27)
[2016-11-27] MEDS: MAGNESIUM CHLORIDE 64 MG TABLET PO SCH (08:27)
[2016-11-27] MEDS: LOSARTAN 50 MG TABLET PO SCH (08:27)
[2016-11-27] MEDS: SERTRALINE 50 MG TABLET PO SCH (08:27)
[2016-11-27] MEDS: ENOXAPARIN 40 MG/0.4 ML SYRINGE SUBCUT SCH (08:28)
--- NOTE | 2016-11-27 08:52 | Event Note ---
He looks and feels well. His wound looks good. He is tolerating a diet but is not having colostomy output at this point. His vital signs are stable. His lab work looks good. I think we are at a point where he can be discharged home. Hopefully we can get some colostomy output today and get him discharged with plans to follow-up in my office in 1 week. I see no signs of infection or any other complication at this point.
[2016-11-27] MEDS: ASPIRIN EC 325 MG TABLET PO SCH (09:20)
[2016-11-27] MEDS ORDERED: BISACODYL 10 MG SUPP RECTAL ONE (11:09)
[2016-11-27] MEDS: CYCLOBENZAPRINE 10 MG TABLET PO PRN (14:40)
--- NOTE | 2016-11-27 15:05 | Urology Consultation ---
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 I will I will order a bladder scan in the morning and we will check a PSA. Current Visit: Yes History of Present Illness - Data of Consult Patient: new to practice Consult date: 11/27/16 Requesting Physician: Oral Alvarez III. - Consult Narrative Reason for consult: Voiding dysfunction, BPH History of present illness: Mr. Blanco is a 71 year old male who had episode of peritonitis from diverticular issue. He had some surgery has a colostomy wound was left open and then he had a closure. He has had difficulty voiding. Prior to being him in the hospital he was getting up couple times a night and so I think him more problems in the new about. Said he saw Dr. Blandon a year ago and his PSA and exam were okay. He has not had any infections, kidney stones. CC: Oral Alvarez III., - Home Medications and Allergies Home Medications: Home Medications Medication Instructions Recorded Confirmed Type Aspirin EC Tab 325 mg PO DAILY 11/21/16 11/21/16 History Carvedilol [Coreg] 25 mg PO BID 11/21/16 11/21/16 History Cholecalciferol (Vitamin D3) 2,000 unit PO DAILY 11/21/16 11/21/16 History [Vitamin D3] Cyanocobalamin/Folic AC/Vit B6 1 each PO DAILY 11/21/16 11/21/16 History [Folbic Tablet] Levothyroxine Tab [Synthroid Tab] 137 mcg PO DAILY 11/21/16 11/21/16 History Losartan [Cozaar] 50 mg PO DAILY 11/21/16 11/21/16 History Magnesium Chloride [Slow Mag] 128 mg PO DAILY 11/21/16 11/21/16 History Pantoprazole Tab [Protonix Tab] 40 mg PO DAILY 11/21/16 11/21/16 History Rosuvastatin [Crestor] 10 mg PO DAILY 11/21/16 11/21/16 History Sertraline [Zoloft] 50 mg PO DAILY 11/21/16 11/21/16 History hydroCHLOROthiazide 12.5 mg PO DAILY 11/21/16 11/21/16 History [Hydrochlorothiazide] Allergies/Adverse Reactions: Allergies Allergy/AdvReac Type Severity Reaction Status Date / Time No Known Allergies Allergy Verified 11/21/16 10:54 12 point system: reviewed and no additional remarkable complaints except as stated - Genitourinary Genitourinary: Present: difficulty urinating, nocturia, urinary frequency, other (Fullness after voiding). Absent: dysuria Exam - Constitutional Vitals: Period Temp Pulse Resp BP Sys/Esteban Pulse Ox Last 24 Hr 96.5 F-99.2 F 58-71 18-20 112-179/65-92 91-98 Results - Labs CBC & BMP: 11/27/16 06:27 11/27/16 06:27 Specialty Discharge - Follow Up or Referrals Follow up with: Oral Alvarez III., MD [Physician] - 12/03/16 2:00 pm
[2016-11-27] MEDS: TAMSULOSIN 0.4 MG CAPSULE PO SCH (15:09)
[2016-11-27] MEDS: DEXTROSE 5% LACTATED RINGERS 1,000 ML IV SCH (23:25)
--- NOTE | 2016-11-28 05:52 | Event Note ---
The patient developed urinary retention with postvoid residual around 300 mL's yesterday. Otherwise no events overnight. He was seen by urology who added Flomax and this has helped a lot with his urination stream. A post void residual is planned again for this morning. He is tolerating diet without nausea or vomiting and he is having some gas passing into his ostomy bag but no stool output yet. He is up walking in the hallway. His exam is unremarkable with a pink and patent ostomy that has no output in the bag. He has normal bowel sounds. His abdomen is nondistended. There are no new labs today. We will try to add some MiraLAX today and see if we can get some output from the colostomy with hope for discharge home tomorrow
[2016-11-28] MEDS: POLYETHYLENE GLYCOL POWDER 17 GM PACK PO SCH (08:13)
[2016-11-28] MEDS: hydroCHLOROthiazide 12.5 MG CAPSULE PO SCH (08:14)
[2016-11-28] MEDS: ASPIRIN EC 325 MG TABLET PO SCH (08:14)
[2016-11-28] MEDS: CYCLOBENZAPRINE 10 MG TABLET PO PRN (08:14)
[2016-11-28] MEDS: LEVOTHYROXINE 137 MCG TABLET PO SCH (08:15)
[2016-11-28] MEDS: TAMSULOSIN 0.4 MG CAPSULE PO SCH ×2 (08:15→20:02)
[2016-11-28] MEDS: MAGNESIUM CHLORIDE 64 MG TABLET PO SCH (08:15)
[2016-11-28] MEDS: CIPROFLOXACIN 500 MG TABLET PO SCH ×2 (08:16→20:02)
[2016-11-28] MEDS: CARVEDILOL 25 MG TABLET PO SCH ×2 (08:16→20:06)
[2016-11-28] MEDS: SERTRALINE 50 MG TABLET PO SCH (08:16)
[2016-11-28] MEDS: LOSARTAN 50 MG TABLET PO SCH (08:20)
[2016-11-28] MEDS: PANTOPRAZOLE 40 MG TABLET PO SCH (08:22)
[2016-11-28] MEDS: ENOXAPARIN 40 MG/0.4 ML SYRINGE SUBCUT SCH (08:25)
--- NOTE | 2016-11-28 12:57 | Urology Progress Note ---
Assessment and Plan (1) BPH with obstruction/lower urinary tract symptoms Status: Acute Assessment and plan: We will begin Flomax. I will I will order a bladder scan in the morning and we will check a PSA. Current Visit: Yes Urology - PN: Subj Interval history: Patient is improving. A bladder scan was done last night that showed 500. He feels better taking the Flomax. Bladder scan this morning is 350 so he is improving. But still has way to go. I will double his Flomax to twice a day. His PSA is 0.5. Patient was notified. I recommend continued time and ambulation. Exam - Constitutional Vitals: Period Temp Pulse Resp BP Sys/Esteban Pulse Ox Last 24 Hr 97.4 F-98.5 F 60-68 18-20 128-150/68-89 95-97 Results - Labs CBC & BMP: 11/27/16 06:27 11/27/16 06:27 Specialty Discharge - Follow Up or Referrals Follow up with: Oral Alvarez III., MD [Physician] - 12/03/16 2:00 pm
[2016-11-29] MEDS: TAMSULOSIN 0.4 MG CAPSULE PO SCH (08:51)
[2016-11-29] MEDS: PANTOPRAZOLE 40 MG TABLET PO SCH (08:51)
[2016-11-29] MEDS: LEVOTHYROXINE 137 MCG TABLET PO SCH (08:51)
[2016-11-29] MEDS: LOSARTAN 50 MG TABLET PO SCH (08:51)
[2016-11-29] MEDS: CARVEDILOL 25 MG TABLET PO SCH (08:51)
[2016-11-29] MEDS: MAGNESIUM CHLORIDE 64 MG TABLET PO SCH (08:51)
[2016-11-29] MEDS: hydroCHLOROthiazide 12.5 MG CAPSULE PO SCH (08:51)
[2016-11-29] MEDS: SERTRALINE 50 MG TABLET PO SCH (08:51)
[2016-11-29] MEDS: CIPROFLOXACIN 500 MG TABLET PO SCH (08:51)
[2016-11-29] MEDS: ASPIRIN EC 325 MG TABLET PO SCH (08:52)
[2016-11-29] MEDS: ENOXAPARIN 40 MG/0.4 ML SYRINGE SUBCUT SCH (08:53)
[2016-11-29] MEDS: POLYETHYLENE GLYCOL POWDER 17 GM PACK PO SCH (08:53)
--- NOTE | 2016-11-29 09:21 | Discharge Summary ---
Hospital Course - Hospital Course Hospital Course: This patient was admitted with sigmoid diverticulitis that required laparotomy and Mendez's procedure. He had some problems with urinary retention postoperatively but this resolved with the administration of Flomax and urology was following for this. His last post void residuals less than 34 cc and he was tolerating a diet with no nausea or vomiting and having colostomy output on the day of discharge she was discharged home. He also had a delayed primary closure of his midline incision during his hospital stay and this looked clean with no evidence of infection. The patient was discharged home with follow-up with Dr. Alvarez and Dr. Marcus Pillai in the office Specialty Discharge - Follow Up or Referrals Follow up with: Oral Alvarez III., MD [Physician] - 12/03/16 2:00 pm Marcus Pillai MD [Physician] - Discharge Plan - Discharge Data Disposition: Disch To Home/Self Care Condition at Discharge: Stable Discharge Diet: advance to your usual diet Activity: no lifting Hygiene: may shower Weight Bearing at Discharge: weight bear as tolerated Driving: other (Do not drive or operate heavy machinery for at least 24 hours and after you are off of narcotic pain medications.) Contact your physician if you experience:: fever over 101, Difficulty voiding, Redness or swelling, Nausea/Vomiting, Shortness of breath, Bleeding, pain uncontrolled by pain medications Wound / Dressing Care Instructions: It is okay to shower. Do not submerge the incision under water. - Discharge Medications New HYDROcodone/ACETAMIN 7.5-325 [[place] 7.5-325] 1 tablet PO Q4H PRN #30 tablet PRN Reason: Pain Moderate (4-7) Polyethylene Glycol Powder [Miralax] 17 gm PO DAILY Tamsulosin [Flomax] 0.4 mg PO BID #28 capsule Continue Magnesium Chloride [Slow Mag] 128 mg PO DAILY Aspirin EC Tab 325 mg PO DAILY Sertraline [Zoloft] 50 mg PO DAILY Rosuvastatin [Crestor] 10 mg PO DAILY Pantoprazole Tab [Protonix Tab] 40 mg PO DAILY Cyanocobalamin/Folic AC/Vit B6 [Folbic Tablet] 1 each PO DAILY Carvedilol [Coreg] 25 mg PO BID Cholecalciferol (Vitamin D3) [Vitamin D3] 2,000 unit PO DAILY hydroCHLOROthiazide [Hydrochlorothiazide] 12.5 mg PO DAILY Levothyroxine Tab [Synthroid Tab] 137 mcg PO DAILY Losartan [Cozaar] 50 mg PO DAILY - Follow Up or Referral Follow Up: Oral Alvarez III., MD [Physician] - 12/03/16 2:00 pm - Forms/Instructions Exam - Constitutional Vitals: Period Temp Pulse Resp BP Sys/Esteban Pulse Ox Last 24 Hr 97.4 F-98.3 F 60-70 16-20 130-150/68-89 94-98 General appearance: no acute distress, over weight - Head Head exam: Present: normal inspection, normocephalic - Eye Eye exam: Present: EOMI. Absent: conjunctival injection Pupils: Present: DESHAWN - ENT ENT exam: Present: normal exam - Neck Neck exam: Present: normal inspection - Respiratory Respiratory exam: Present: clear to auscultation bilaterally. Absent: accessory muscle use, chest wall tenderness - Cardiovascular Cardiovascular exam: Present: regular rate and rhythm. Absent: systolic murmur , tachycardia - GI/Abdominal GI/Abdominal exam: Present: normal bowel sounds, tenderness (Expected postoperative tenderness), soft, other (Ostomy is pink patent and productive of liquid stool. Midline incision is clean and dry with no infection or bleeding) . Absent: rebound - Extremities Exam Extremities exam: Present: normal inspection, normal capillary refill - Back Exam Back exam: Present: normal inspection - Neurological Exam Neurological exam: Present: alert, oriented X3 - Psychiatric Psychiatric exam: Present: normal affect, normal mood - Skin Skin exam: Present: normal color, warm DS: Provider Date of admission: 11/21/16 15:22 Primary care physician: Jose Rafael Blount MD Attending physician on admission: Oral Alvarez III., Consults: 11/26/16 08:01 Consult to Case Mgmt/Social Srvs [CONS] Routine Reason for Case Mgmt/Social Srvs: Home Health Consult Comment: ostomy care Consult to Wound Care - Roundup [CONS] Routine Reason for Wound Care: Other Consult Comment: teach ostomy care 11/27/16 13:59 Consult to Physician [CONS] Routine Comment: urinary retention Consulting Provider: Marcus Pillai Consulting Provider Notified: Yes When should Consulting Provider be notified: Now Consult to Specialist Group: Urology Person Notified: marcus olson called Date Notified: 11/27/16 Time Notified: 14:27 Consult Notification Comment: Discharging clinician: Nicholas Roldan MD Expected date of discharge: 11/29/16
[2016-11-29 12:35] VITALS: BP 138/75
--- NOTE | 2016-11-29 13:45 | Urology Progress Note ---
Assessment and Plan (1) BPH with obstruction/lower urinary tract symptoms Status: Acute Assessment and plan: We will begin Flomax. I will I will order a bladder scan in the morning and we will check a PSA. Current Visit: Yes Urology - PN: Subj Interval history: Patient is doing much better with his voiding. Feels more comfortable. Got up 3 times last night which is better. He is going home and I agree with that. I will see him in 1 month. Prescription for Flomax written. Flomax 0.4 mg, #60, 1 p.o. twice daily, 6 refills. His PSA was 0.5. If he has any voiding problems at home he is to call my office. Exam - Constitutional Vitals: Period Temp Pulse Resp BP Sys/Esteban Pulse Ox Last 24 Hr 97.5 F-98.3 F 60-70 16-20 130-149/68-80 94-98 Results - Labs CBC & BMP: 11/27/16 06:27 11/27/16 06:27 Specialty Discharge - Follow Up or Referrals Follow up with: Oral Alvarez III., MD [Physician] - 12/03/16 2:00 pm Uvaldo Pillai MD [Physician] -
== END 2016-11-29 14:23 | disposition home health service (06) | DRG 330 ==
LOC: N.ED 10:48 → N.ICU 12:32 → N.3E 15:22
PROVIDERS: ADMIT Surgery; ATTEND Surgery

== ENCOUNTER 2017-04-01 05:40 | Inpatient (IN) ==
[2017-03-22 13:54] LABS: Basophils # 0.1 10*3/uL (0.0-0.2); Basophils % 0.7 % (0.0-0.8); Eosinophils # 0.5 10*3/uL (0.0-0.87); Eosinophils % 3.6 % (0.00-10.9); Hematocrit 44.6 VOL% (42.0-52.0); Hemoglobin 15.3 GM/DL (14.0-18.0); Immature Granulocytes % 2.4 %; Lymphocytes # 2.4 10*3/uL (1.4-4.0); Lymphocytes % 19.3 % (21.2-54.2); Mean Corpuscular HGB Conc 34.3 GM/DL (32-36); Mean Corpuscular Hemoglobin 31 PG (27-34); Mean Platelet Volume 9.9 FL (9.6-12.0); Monocytes # 0.8 10*3/uL (0.11-0.8); Neutrophils # 8.5 10*3/uL (1.4-7.4); Platelet Count 137 T/CUMM (130-400); Red Cell Distribution Width 13.3 % (9.3-17.3); White Blood Count 12.5 T/CUMM (4-12)
[2017-03-22 14:40] LABS: Albumin 3.6 G/DL (3.4-5.0); Bilirubin,Total 0.6 MG/DL (0.2-1.0); Osmolality,Calculated 278.8 MOS/KG (273-304); Potassium 4.1 MMOL/L (3.5-5.1); Total Protein 6.8 G/DL (6.4-8.3)
[2017-04-01] MEDS ORDERED: ALVIMOPAN 12 MG CAPSULE PO ONE (06:00)
[2017-04-01] MEDS ORDERED: SODIUM CHLORIDE 0.9% 50 ML IV ONE (06:11)
[2017-04-01] MEDS ORDERED: ALVIMOPAN 12 MG CAPSULE ONE (06:11)
[2017-04-01] MEDS: LACTATED RINGERS 1,000 ML IV SCH ×3 (06:37→15:51)
[2017-04-01] MEDS ORDERED: SCOPOLAMINE 1.5 MG PATCH TRANSDERM ONE ×2 (07:07→07:10)
[2017-04-01] MEDS ORDERED: ONDANSETRON 4 MG/2 ML VIAL IV PRN (10:29)
[2017-04-01] MEDS ORDERED: MORPHINE 2 MG/1 ML SYRINGE IV PRN (10:29)
[2017-04-01] MEDS ORDERED: SUFentanil 50 MCG/ML AMP ONE (10:44)
[2017-04-01] MEDS ORDERED: ePHEDrine 50 MG/ML AMP ONE (10:44)
[2017-04-01] MEDS ORDERED: MIDAZOLAM 2 MG/2 ML VIAL ONE (10:44)
[2017-04-01] MEDS ORDERED: SEVOFLURANE 1 UNIT/15 MINUTE INH ONE (10:48)
[2017-04-01] MEDS ORDERED: ACETAMINOPHEN 1,000 MG/100 ML VIAL IV ONE (10:48)
[2017-04-01 11:19] LABS: Hematocrit 39.5 VOL% (42.0-52.0); Hemoglobin 13.8 GM/DL (14.0-18.0)
[2017-04-01] MEDS ORDERED: LACTATED RINGERS 2,000 ML IV ONE (11:32)
[2017-04-01] MEDS ORDERED: DEXAMETHASONE 10 MG/1 ML VIAL ONE (11:34)
[2017-04-01] MEDS ORDERED: PHENYLEPHRINE DRIP 20 MG/250 ML PREMIX IV ONE (11:34)
[2017-04-01] MEDS ORDERED: PROPOFOL 200 MG/20 ML VIAL IV ONE (11:34)
[2017-04-01] MEDS ORDERED: ROCURONIUM 100 MG/10 ML VIAL IV ONE (11:35)
[2017-04-01] MEDS ORDERED: GLYCOPYRROLATE 0.4 MG/2 ML VIAL ONE (11:35)
[2017-04-01] MEDS ORDERED: ONDANSETRON 4 MG/2 ML VIAL ONE (11:35)
[2017-04-01] MEDS ORDERED: NEOSTIGMINE 10 MG/10 ML VIAL ONE (11:35)
[2017-04-01 19:22] LABS: Hematocrit 38.9 VOL% (42.0-52.0); Hemoglobin 13.8 GM/DL (14.0-18.0)
[2017-04-01] MEDS: ALVIMOPAN 12 MG CAPSULE PO SCH (20:28)
[2017-04-01] MEDS: CARVEDILOL 25 MG TABLET PO SCH (20:29)
[2017-04-01] MEDS: TAMSULOSIN 0.4 MG CAPSULE PO SCH (20:29)
[2017-04-02] MEDS: LACTATED RINGERS 1,000 ML IV SCH ×3 (03:13→19:34)
[2017-04-02 05:30] LABS: Basophils # 0.1 10*3/uL (0.0-0.2); Basophils % 0.4 % (0.0-0.8); Eosinophils % 0.1 % (0.00-10.9); Hemoglobin 13.3 GM/DL (14.0-18.0); Immature Granulocytes Absolute 0.14 #; Lymphocytes # 0.8 10*3/uL (1.4-4.0); Lymphocytes % 5.8 % (21.2-54.2); Mean Corpuscular Hemoglobin 31 PG (27-34); Mean Corpuscular Volume 89.6 FL (87-102); Mean Platelet Volume 10.6 FL (9.6-12.0); Monocytes # 0.9 10*3/uL (0.11-0.8); Monocytes % 6.3 % (1.7-12.7); Neutrophils # 11.7 10*3/uL (1.4-7.4); Neutrophils % 86.4 % (38.7-73.9); Platelet Count 144 T/CUMM (130-400); Red Blood Count 4.24 MC/CUMM (3.8-5.5); Red Cell Distribution Width 13.4 % (9.3-17.3); White Blood Count 13.5 T/CUMM (4-12)
[2017-04-02 05:33] LABS: Hematocrit 38.7 VOL% (42.0-52.0); Hemoglobin 13.3 GM/DL (14.0-18.0)
[2017-04-02 05:55] LABS: Calcium 8.7 MG/DL (8.5-10.1); Osmolality,Calculated 269.2 MOS/KG (273-304); Potassium 4.7 MMOL/L (3.5-5.1)
[2017-04-02] MEDS: LEVOTHYROXINE 137 MCG TABLET PO SCH (06:47)
[2017-04-02] MEDS: ENOXAPARIN 40 MG/0.4 ML SYRINGE SUBCUT SCH (08:08)
[2017-04-02] MEDS: MAGNESIUM CHLORIDE 64 MG TABLET PO SCH (08:09)
[2017-04-02] MEDS: hydroCHLOROthiazide 12.5 MG CAPSULE PO SCH (08:09)
[2017-04-02] MEDS: TAMSULOSIN 0.4 MG CAPSULE PO SCH ×2 (08:09→20:03)
[2017-04-02] MEDS: CARVEDILOL 25 MG TABLET PO SCH ×2 (08:10→20:02)
[2017-04-02] MEDS: ASPIRIN EC 325 MG TABLET PO SCH (08:10)
[2017-04-02] MEDS: PANTOPRAZOLE 40 MG TABLET PO SCH (08:10)
[2017-04-02] MEDS: SERTRALINE 50 MG TABLET PO SCH ×2 (08:11→08:12)
[2017-04-02] MEDS: ALVIMOPAN 12 MG CAPSULE PO SCH ×2 (08:11→20:03)
[2017-04-02] MEDS: LOSARTAN 50 MG TABLET PO SCH (08:11)
[2017-04-03] MEDS: LACTATED RINGERS 1,000 ML IV SCH ×2 (01:57→06:05)
[2017-04-03] MEDS: LEVOTHYROXINE 137 MCG TABLET PO SCH (06:05)
[2017-04-03] MEDS: LOSARTAN 50 MG TABLET PO SCH (10:11)
[2017-04-03] MEDS: MAGNESIUM CHLORIDE 64 MG TABLET PO SCH (10:11)
[2017-04-03] MEDS: hydroCHLOROthiazide 12.5 MG CAPSULE PO SCH (10:11)
[2017-04-03] MEDS: SERTRALINE 50 MG TABLET PO SCH (10:12)
[2017-04-03] MEDS: CARVEDILOL 25 MG TABLET PO SCH ×2 (10:12→20:16)
[2017-04-03] MEDS: ALVIMOPAN 12 MG CAPSULE PO SCH ×2 (10:12→20:16)
[2017-04-03] MEDS: PANTOPRAZOLE 40 MG TABLET PO SCH (10:12)
[2017-04-03] MEDS: ENOXAPARIN 40 MG/0.4 ML SYRINGE SUBCUT SCH (10:12)
[2017-04-03] MEDS: TAMSULOSIN 0.4 MG CAPSULE PO SCH ×2 (10:12→20:16)
[2017-04-03] MEDS: ASPIRIN EC 325 MG TABLET PO SCH (10:12)
[2017-04-03] MEDS ORDERED: PHENYLEPH/MINERAL OIL/PETROLAT 57 GM TUBE TOP PRN (12:49)
[2017-04-03] MEDS: SIMETHICONE CHEW 80 MG TABLET PO PRN (19:50)
[2017-04-04] MEDS: SIMETHICONE CHEW 80 MG TABLET PO PRN ×2 (04:55→17:35)
[2017-04-04] MEDS: LEVOTHYROXINE 137 MCG TABLET PO SCH (05:59)
[2017-04-04 06:23] LABS: Basophils # 0.1 10*3/uL (0.0-0.2); Basophils % 1.1 % (0.0-0.8); Eosinophils # 0.6 10*3/uL (0.0-0.87); Eosinophils % 5.4 % (0.00-10.9); Hematocrit 39.2 VOL% (42.0-52.0); Hemoglobin 13.7 GM/DL (14.0-18.0); Immature Granulocytes % 2.1 %; Immature Granulocytes Absolute 0.21 #; Lymphocytes # 1.8 10*3/uL (1.4-4.0); Lymphocytes % 17.5 % (21.2-54.2); Mean Corpuscular HGB Conc 34.9 GM/DL (32-36); Mean Corpuscular Hemoglobin 32 PG (27-34); Mean Corpuscular Volume 90.1 FL (87-102); Mean Platelet Volume 10.2 FL (9.6-12.0); Monocytes # 1.1 10*3/uL (0.11-0.8); Neutrophils # 6.4 10*3/uL (1.4-7.4); Neutrophils % 62.9 % (38.7-73.9); Platelet Count 141 T/CUMM (130-400); Red Blood Count 4.35 MC/CUMM (3.8-5.5); Red Cell Distribution Width 13.8 % (9.3-17.3); White Blood Count 10.1 T/CUMM (4-12)
[2017-04-04] MEDS: CARVEDILOL 25 MG TABLET PO SCH ×2 (08:50→20:30)
[2017-04-04] MEDS: ALVIMOPAN 12 MG CAPSULE PO SCH ×2 (08:50→20:30)
[2017-04-04] MEDS: hydroCHLOROthiazide 12.5 MG CAPSULE PO SCH (08:50)
[2017-04-04] MEDS: LOSARTAN 50 MG TABLET PO SCH (08:50)
[2017-04-04] MEDS: TAMSULOSIN 0.4 MG CAPSULE PO SCH ×2 (08:50→20:30)
[2017-04-04] MEDS: ASPIRIN EC 325 MG TABLET PO SCH (08:50)
[2017-04-04] MEDS: ENOXAPARIN 40 MG/0.4 ML SYRINGE SUBCUT SCH (08:51)
[2017-04-04] MEDS: PANTOPRAZOLE 40 MG TABLET PO SCH (08:51)
[2017-04-04] MEDS: SERTRALINE 50 MG TABLET PO SCH (08:52)
[2017-04-04] MEDS: MAGNESIUM CHLORIDE 64 MG TABLET PO SCH (08:55)
[2017-04-05] MEDS: LEVOTHYROXINE 137 MCG TABLET PO SCH (06:01)
[2017-04-05] MEDS: ALVIMOPAN 12 MG CAPSULE PO SCH ×2 (09:29→20:12)
[2017-04-05] MEDS: LOSARTAN 50 MG TABLET PO SCH (09:37)
[2017-04-05] MEDS: CARVEDILOL 25 MG TABLET PO SCH ×2 (09:37→20:39)
[2017-04-05] MEDS: ASPIRIN EC 325 MG TABLET PO SCH (09:37)
[2017-04-05] MEDS: hydroCHLOROthiazide 12.5 MG CAPSULE PO SCH (09:38)
[2017-04-05] MEDS: PANTOPRAZOLE 40 MG TABLET PO SCH (09:38)
[2017-04-05] MEDS: TAMSULOSIN 0.4 MG CAPSULE PO SCH ×2 (09:38→20:39)
[2017-04-05] MEDS: SERTRALINE 50 MG TABLET PO SCH (09:38)
[2017-04-05] MEDS: MAGNESIUM CHLORIDE 64 MG TABLET PO SCH (09:38)
[2017-04-05] MEDS: ENOXAPARIN 40 MG/0.4 ML SYRINGE SUBCUT SCH (09:40)
[2017-04-06] MEDS: LEVOTHYROXINE 137 MCG TABLET PO SCH (06:07)
[2017-04-06 06:32] LABS: Basophils # 0.1 10*3/uL (0.0-0.2); Basophils % 1.1 % (0.0-0.8); Eosinophils # 0.8 10*3/uL (0.0-0.87); Eosinophils % 7.1 % (0.00-10.9); Hematocrit 39.3 VOL% (42.0-52.0); Hemoglobin 13.6 GM/DL (14.0-18.0); Immature Granulocytes % 5.6 %; Immature Granulocytes Absolute 0.64 #; Lymphocytes # 1.7 10*3/uL (1.4-4.0); Lymphocytes % 15.3 % (21.2-54.2); Mean Corpuscular HGB Conc 34.6 GM/DL (32-36); Mean Corpuscular Hemoglobin 32 PG (27-34); Mean Platelet Volume 10.4 FL (9.6-12.0); Monocytes # 1.2 10*3/uL (0.11-0.8); Monocytes % 10.8 % (1.7-12.7); Neutrophils # 6.8 10*3/uL (1.4-7.4); Neutrophils % 60.1 % (38.7-73.9); Platelet Count 196 T/CUMM (130-400); Red Blood Count 4.32 MC/CUMM (3.8-5.5); Red Cell Distribution Width 13.7 % (9.3-17.3); White Blood Count 11.3 T/CUMM (4-12)
[2017-04-06 06:58] LABS: Band Neutrophils 1 % (0-10); Calcium 8.7 MG/DL (8.5-10.1); Eosinophils 10 % (0-10); Giant Platelets Few; Hypochromasia 1+; Lymphocytes 16 % (20-55); Microcytosis Slight; Osmolality,Calculated 271.8 MOS/KG (273-304); Platelet Estimate Adequate; Potassium 4.1 MMOL/L (3.5-5.1); Segmented Neutrophils 64 % (50-85); Total Cells Counted 100
[2017-04-06] MEDS ORDERED: HYDROCORTISONE 2.5% RECTAL CREAM 30 GM TUBE TOP PRN (07:13)
[2017-04-06] MEDS: TAMSULOSIN 0.4 MG CAPSULE PO SCH ×2 (08:43→21:01)
[2017-04-06] MEDS: ALVIMOPAN 12 MG CAPSULE PO SCH ×2 (08:43→21:03)
[2017-04-06] MEDS: ASPIRIN EC 325 MG TABLET PO SCH (08:43)
[2017-04-06] MEDS: SERTRALINE 50 MG TABLET PO SCH (08:44)
[2017-04-06] MEDS: MAGNESIUM CHLORIDE 64 MG TABLET PO SCH (08:44)
[2017-04-06] MEDS: hydroCHLOROthiazide 12.5 MG CAPSULE PO SCH (08:45)
[2017-04-06] MEDS: LOSARTAN 50 MG TABLET PO SCH (08:58)
[2017-04-06] MEDS: CARVEDILOL 25 MG TABLET PO SCH ×2 (08:58→21:01)
[2017-04-06] MEDS: PANTOPRAZOLE 40 MG TABLET PO SCH (08:58)
[2017-04-06] MEDS ORDERED: LIDOCAINE 1%/EPI INJ 20 ML VIAL ONE (12:26)
[2017-04-06] MEDS ORDERED: SUGAMMADEX 200 MG/2 ML VIAL IV ONE (13:36)
[2017-04-06] MEDS ORDERED: SEVOFLURANE 1 UNIT/15 MINUTE INH ONE (13:39)
[2017-04-06] MEDS ORDERED: fentaNYL 100 MCG/2 ML VIAL ONE (13:39)
[2017-04-06] MEDS ORDERED: PROPOFOL 200 MG/20 ML VIAL IV ONE (13:39)
[2017-04-06] MEDS ORDERED: MIDAZOLAM 2 MG/2 ML VIAL ONE (13:40)
[2017-04-06] MEDS ORDERED: ROCURONIUM 100 MG/10 ML VIAL IV ONE (13:40)
[2017-04-06] MEDS ORDERED: ONDANSETRON 4 MG/2 ML VIAL ONE (13:40)
[2017-04-06] MEDS ORDERED: HYDROmorphone 2 MG/1 ML VIAL IV PRN (14:03)
[2017-04-06] MEDS ORDERED: ONDANSETRON 4 MG/2 ML VIAL IV PRN (14:03)
[2017-04-06] MEDS ORDERED: HYDROmorphone 2 MG/1 ML VIAL ONE (14:04)
[2017-04-07] MEDS: LEVOTHYROXINE 137 MCG TABLET PO SCH (06:23)
[2017-04-07] MEDS: LOSARTAN 50 MG TABLET PO SCH (09:25)
[2017-04-07] MEDS: PANTOPRAZOLE 40 MG TABLET PO SCH (09:25)
[2017-04-07] MEDS: SERTRALINE 50 MG TABLET PO SCH (09:25)
[2017-04-07] MEDS: ASPIRIN EC 325 MG TABLET PO SCH (09:25)
[2017-04-07] MEDS: MAGNESIUM CHLORIDE 64 MG TABLET PO SCH (09:25)
[2017-04-07] MEDS: hydroCHLOROthiazide 12.5 MG CAPSULE PO SCH (09:25)
[2017-04-07] MEDS: CARVEDILOL 25 MG TABLET PO SCH (09:26)
[2017-04-07] MEDS: TAMSULOSIN 0.4 MG CAPSULE PO SCH (09:26)
[2017-04-07 10:54] VITALS: BP 120/61
== END 2017-04-07 14:21 | disposition home or self-care (01) | DRG 330 ==
LOC: N.OR 05:40 → N.SDSINP 05:41 → N.3E 10:29
PROVIDERS: ADMIT Surgery; ATTEND Surgery